=== PATIENT | female | born 1945 | race Caucasian/White ===

== ENCOUNTER 2022-09-06 07:29 | Day surgery (SDC) | payer BC, MEDICARE, OTHER ==
[2022-09-06] MEDS ORDERED: fentaNYL 100 MCG/2 ML SDV IV ONE (07:30)
[2022-09-06] MEDS ORDERED: Midazolam 1 MG/ML 2 ML SDV IV ONE (07:30)
[2022-09-06] MEDS ORDERED: Lactated Ringers 1,000 ML IV PRN (07:45)
[2022-09-06] MEDS ORDERED: Sodium Chloride 0.9% 10 ML Syringe FLUSH PRN (07:45)
[2022-09-06] MEDS ORDERED: acetaZOLAMIDE 500 MG Cap.ER PO ONE (09:30)
== END 2022-09-06 09:31 ==
LOC: FB.SDS 07:29
PROVIDERS: ATTEND Ophthalmology
DX: H25.813 Combined forms of age-related cataract, bilateral (principal); H40.1131 Primary open-angle glaucoma, bilateral, mild stage; H18.593 Other hereditary corneal dystrophies, bilateral; H35.363 Drusen (degenerative) of macula, bilateral; H04.123 Dry eye syndrome of bilateral lacrimal glands; H52.13 Myopia, bilateral; H52.223 Regular astigmatism, bilateral; I10 Essential (primary) hypertension; E78.5 Hyperlipidemia, unspecified; F41.9 Anxiety disorder, unspecified; H40.9 Unspecified glaucoma; F17.210 Nicotine dependence, cigarettes, uncomplicated; Z98.890 Other specified postprocedural states; Z79.899 Other long term (current) drug therapy; Z79.82 Long term (current) use of aspirin
CPT/HCPCS: 00142-QZ; A9270-GY; C1783; J2250; J3010; J7120; V2632

== ENCOUNTER 2022-09-20 06:30 | Day surgery (SDC) | payer MEDICARE, OTHER ==
[~2022-09-20 06:30] MED LIST: Lactated Ringers 1,000 ML IV PRN; Sodium Chloride 0.9% 10 ML Syringe FLUSH PRN
[2022-09-20] MEDS ORDERED: Midazolam 1 MG/ML 2 ML SDV IV ONE (06:31)
[2022-09-20] MEDS ORDERED: fentaNYL 100 MCG/2 ML SDV IV ONE (06:51)
[2022-09-20] MEDS: acetaZOLAMIDE 500 MG Cap.ER PO ONE (09:05)
== END 2022-09-20 09:15 | disposition home or self-care (01) ==
LOC: FB.SDS 06:30
PROVIDERS: ATTEND Ophthalmology
DX: H25.813 Combined forms of age-related cataract, bilateral (principal); H40.1131 Primary open-angle glaucoma, bilateral, mild stage; H18.593 Other hereditary corneal dystrophies, bilateral; H35.363 Drusen (degenerative) of macula, bilateral; H04.123 Dry eye syndrome of bilateral lacrimal glands; H52.13 Myopia, bilateral; H52.223 Regular astigmatism, bilateral; I10 Essential (primary) hypertension; J44.9 Chronic obstructive pulmonary disease, unspecified; F41.9 Anxiety disorder, unspecified; Z79.899 Other long term (current) drug therapy
CPT/HCPCS: 00142-QZ; A9270-GY; C1783; J2250; J3010; V2632